=== PATIENT | female | born 1985 | race Caucasian/White ===

== ENCOUNTER → 2018-09-14 | Outpatient (CLI) | payer BC ==
--- NOTE | 2018-09-14 10:33 | KCIC ---
EXAMINATION: Magnetic resonance imaging (MRI) of the lumbar spine without contrast 09/14/2018 8:00 AM HISTORY: Chronic low back pain. Bilateral hip pain from the sacral region TECHNIQUE: Multiplanar multi-weighted MRI of the lumbar spine was performed without intravenous contrast using the standard lumbar spine protocol. Contrast information: None administered. COMPARISON: None available. FINDINGS: The alignment of the lumbar spine is normal. Vertebral bodies demonstrate normal signal intensity on all sequences. There are no compression fractures. The conus medullaris terminates at the level of L1. The distal spinal cord signal intensity is normal. There is disc desiccation at L4-L5 and L5-S1. Mild to moderate disc height loss at L5-S1. Annular fissures identified at L4-L5 and L5-S1. Limited views of the abdomen and pelvis show no soft tissue abnormality. The aorta is normal. L3-L4: The disc is normal in configuration. There is no facet arthropathy. There is no neuroforaminal stenosis. There is no spinal canal stenosis. L4-L5: There is mild circumferential disc bulge with central annular fissure. There is mild facet arthropathy. There is mild neuroforaminal stenosis. There is no spinal canal stenosis. L5-S1: There is a central disc extrusion extending to the superior pedicle level of S1. There is mild to moderate facet arthropathy. There is mild right neuroforaminal stenosis. There is no spinal canal stenosis. There is mild thickening of the right L5 nerve. IMPRESSION: Mild degenerative changes of the lumbar spine as described in detail above. There is mild asymmetric fusiform thickening of the right L5 nerve which may be secondary to inflammation. Electronically signed by: Liberty Saucedo MD (09/14/2018 10:29 AM) [id number]
== END | disposition home or self-care (01) ==
LOC: KCIC MRI 07:45
DX: M51.36 Other intervertebral disc degeneration, lumbar region (principal); M12.88 Other specific arthropathies, not elsewhere classified, other specified site; M48.061 Spinal stenosis, lumbar region without neurogenic claudication; M51.26 Other intervertebral disc displacement, lumbar region
CPT/HCPCS: 72148